=== PATIENT | male | born 1955 ===

== ENCOUNTER 2023-11-20 13:15 | Emergency (ER) | payer OTHER ==
[~2023-11-20] VITALS: Ht 175.3 cm; Wt 81.2 kg
[2023-11-20] MEDS ORDERED: METOPROLOL SUC100 MG PO (13:41)
[2023-11-20] MEDS ORDERED: COZAAR50 MG PO (13:41)
[2023-11-20] MEDS ORDERED: GLUMETZA1000 MG PO (13:42)
[2023-11-20] MEDS ORDERED: OZEMPIC1 MG/0.71 SQ (13:43)
== END 2023-11-20 18:08 | disposition home or self-care (01) ==
LOC: ER 13:15
DX: U07.1 COVID-19 (principal); I10 Essential (primary) hypertension; E11.9 Type 2 diabetes mellitus without complications; Z79.84 Long term (current) use of oral hypoglycemic drugs
CPT/HCPCS: 96372; 99284; J1100